=== PATIENT | male | born 1995 | race Caucasian/White ===

== ENCOUNTER 2021-02-05 18:23 | Emergency (ER) | payer BC ==
[2021-02-05] MEDS ORDERED: NAPROSYN500 MG PO (20:51)
== END 2021-02-05 21:08 | disposition home or self-care (01) ==
LOC: ER1 18:23
DX: S90.31XA Contusion of right foot, initial encounter (principal); S20.311A Abrasion of right front wall of thorax, initial encounter; W22.8XXA Striking against or struck by other objects, initial encounter; Y92.009 Unspecified place in unspecified non-institutional (private) residence as the place of occurrence of the external cause
CPT/HCPCS: 73630; 99283

== ENCOUNTER 2022-01-02 14:22 | Inpatient (IN) | payer BC ==
[~2022-01-02] VITALS: Ht 193 cm; Wt 90.7 kg
[~2022-01-02 14:22] MED LIST: NAPROSYN500 MG PO
[2022-01-02 15:54] LABS: RED BLOOD COUNT 5.32 M/UL (4.20-5.50); WHITE BLOOD COUNT 17.5 K/UL (4.5-11.0)
[2022-01-02 16:11] LABS: BUN/CREATININE RATIO 16 (0-10)
[2022-01-03 03:30] LABS: RED BLOOD COUNT 4.75 M/UL (4.20-5.50); WHITE BLOOD COUNT 11.9 K/UL (4.5-11.0)
[2022-01-03 04:11] LABS: BUN/CREATININE RATIO 13 (0-10)
--- NOTE | 2022-01-03 13:35 | NUR ---
CONTACTED MRI DEPT INQUIRING ABOUT WHEN PT WOULD RECIEVE MRI. MRI STATES WILL BE DONE LATER TODAY.
--- NOTE | 2022-01-03 16:10 | NUR ---
CONTACTED MRI DEPT INQUIRING ABOUT WHEN MRI WOULD BE PERFORMED. MRI STATES THEY ARE FINISHING ONE AND HAVE ONE MORE THEN PT WILL GO FOR MRI.
[2022-01-04 04:44] LABS: HEMOGLOBIN 14.1 gm/dl (14.0-17.5); RED BLOOD COUNT 4.8 M/UL (4.20-5.50); WHITE BLOOD COUNT 9.5 K/UL (4.5-11.0)
[2022-01-04 05:37] LABS: BUN/CREATININE RATIO 8 (0-10)
[2022-01-04] MEDS ORDERED: DOXYCYCLINE HY100 MG PO (15:37)
[2022-01-04] MEDS ORDERED: CEFADROXIL500 MG PO ×2 (15:37→15:38)
--- NOTE | 2022-01-04 15:47 | NUR ---
notified dr. wilson of patient d/c order from dr. diaz and provided report of MRI and agreeable of discharge home.
== END 2022-01-04 17:45 | disposition home or self-care (01) | DRG 603 ==
LOC: ER1 14:22 → CDU 21:43 → M/S 21:43
PROVIDERS: Internal Medicine; Student in an Organized Health Care Education/Training Program; ADMIT Internal Medicine
DX: L03.113 Cellulitis of right upper limb (principal); Z20.822 Contact with and (suspected) exposure to COVID-19
CPT/HCPCS: 36415; 73130; 73220; 80048; 80053; 80202; 81001; 83605; 83735; 85025; 85027; 85652; 86140; 87040; 90714; 96374; 96375; 99285; A9577; J1885; J2543; J3370; J7030; J7070